=== PATIENT | female | born 1985 | race African-American/Black ===

== ENCOUNTER 2016-11-20 10:04 | Emergency (ER) | payer SELFPAY ==
[2016-11-20] MEDS ORDERED: SODIUM CHLORIDE 0.9% 1,000 ML ONE (12:06)
[2016-11-20] MEDS ORDERED: SODIUM CHLORIDE 0.9% 50 ML IV ONE (13:29)
[2016-11-20] MEDS ORDERED: CEFTRIAXONE 1 GM VIAL ONE (13:29)
== END 2016-11-20 15:32 | disposition home or self-care (01) ==
LOC: ER 10:04
DX: L03.115 Cellulitis of right lower limb (principal); E11.9 Type 2 diabetes mellitus without complications; I10 Essential (primary) hypertension; Z79.84 Long term (current) use of oral hypoglycemic drugs
CPT/HCPCS: 36415; 80048; 82947; 85025; 87040; 96361; 96365